=== PATIENT | female | born 1965 | race Caucasian/White ===

== ENCOUNTER 2017-05-07 02:07 | Inpatient (IN) | payer OTHER, MEDICAID ==
[2017-05-07] VITALS (13 sets, daily range): BP systolic 114–141; BP diastolic 66–85; PULSE 98–122; RESP 17–32; O2SAT 92–98
[~2017-05-07] VITALS: Ht 152.4 cm; Wt 72.0 kg
[~2017-05-07 02:07] MED LIST: ALBU2.5V4 IH; ALBU8.5H2 IH; BENZ200C44 PO; CELE200C PO; CEPH-512 PO; ESOM40CA41 PO; FURO-129 PO; IPRA3AMP IH; NAPR500T PO
--- NOTE | 2017-05-07 02:18 | ED.REPORT ---
HPI-General Illness Date of Service May 07, 2017 ED Provider: Dr. Cardona 51 y/o female with a hx of sarcoidosis, asthma and hiatal hernia presents to the ED complaining of cough with white, thick sputum for the last 3 weeks. Associated sx include fever, sore throat, headache, nausea, and mild hemoptysis earlier today. The pt denies vomiting and chest pain. She has not been taking her regular medication as it hurts to swallow. She uses an inhaler at home. Nursing Notes Stated Complaint: COUGH Chief Complaint: Respiratory Distress Nursing Notes Reviewed: Yes Allergies: Coded Allergies: morphine (Verified Allergy, Severe, VOMITTING/ STOMACH BLEEDS, 09/26/16) Hydrolyzed [place] Oil (Verified Allergy, Unknown, UNKNOWN, 09/26/16) Uncoded Allergies: LOCAL ANESTHESIA (Allergy, Unknown, 05/31/15) Scheduled Benzonatate (Benzonatate) 200 Mg Capsule 200 MG PO TID Cephalexin (Keflex) 500 Mg Capsule 500 MG PO QID Furosemide (Lasix) 20 Mg Tablet 20 MG PO DAILY Ipratropium/Albuterol Sulfate (Iprat-Albut 0.5-3(2.5) mg/3 mL Inhalant Soln) 3 Ml Ampul.neb 3 ML IH Q6 Scheduled PRN Albuterol HFA (Proair HFA) 8.5 Gm Hfa.aer.ad 2 PUFFS IH Q4 PRN PRN For Shortness of Breath Albuterol Neb Soln (Albuterol Neb Soln) 2.5 Mg/3 Ml Vial.neb 2.5 MG IH Q4 PRN PRN For Shortness of Breath Celecoxib (Celebrex) 200 Mg Capsule 200 MG PO DAILY PRN PRN For Pain Esomeprazole Magnesium (Nexium) 40 Mg Capsule.dr 40 MG PO DAILY PRN PRN For Dyspepsia or Heartburn Naproxen (Naprosyn) 500 Mg Tablet 500 MG PO BID PRN PRN For Pain General Time Seen by MD: 02:18 Chief Complaint Cough Hx Obtained From: Patient Arrived By: Walk-in Sudden in Onset?: No Onset Occurred: More than a week ago... 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 1. Large hiatal hernia containing stomach and splenic flexure of colon. 2. Right upper lobe pulmonary nodules, mediastinal and retroperitoneal lymphadenopathy, as well as multiple low density splenic lesions. 3. 17 mm diameter splenic artery aneurysm. 4. Multiple small bilateral thyroid nodules. Fibromyalgia Hiatal hernia s/p repair in September 2013 Peptic ulcer disease Asthma HTN CVA Past Surgical History hiatal hernia Smoking History Unknown if Ever Smoker Social History Alcohol Use: Denies alcohol use Drug Use: Denies drug use Other Social History: Good social support, Local resident Occupation lives with boyfriend and her daughter Ambulatory Status Independent Review of Systems Reports: mild hemoptysis Full Review of Systems Constitutional: Reports: Fever Ears / Nose / Throat: Reports: Sore throat Respiratory: Reports: Prod cough, white Cardiovascular: Denies: Chest pain GI: Reports: Nausea, Denies: Vomiting Neurologic: Reports: Headache Complete sys rev & neg: except as marked. Physical Exam Vital Signs Vital Signs Date Time Temp Pulse Resp B/P Pulse Ox O2 Delivery O2 Flow Rate FiO2 05/07/17 04:34 36.7 108 32 134/66 95 Nasal Cannula 2 05/07/17 03:00 110 28 92 Room Air 05/07/17 02:13 37 122 18 141/83 97 Room Air Initial VS: Reviewed Head / Eyes: Atraumatic, Normocephalic Neck: Supple, Non-tender, Full range of motion Abdomen / GI: Soft, Non-tender Extremities: Vascular intact, Neuro intact, No swelling, No tenderness Skin: Warm, Dry, No cyanosis Neurologic: Alert, Oriented, Nonfocal General/Constitutional: Awake, Alert, Cooperative Diaphoretic Chronically ill appearing Respiratory / Chest: Atraumatic, Breath sounds = bilat, No rales Bronchospastic cough Poor breath sounds Cardiovascular: Regular rhythm, Heart sounds NL, No murmurs, No rubs Heart Rate / Rhythm: Positive: Tachycardia Interpretation & Diagnostics Lab Results Interpretation Result Diagram: 05/07/17 0230 05/07/17 0230 Test 05/07/17 02:30 White Blood Count 11.5th/mm3 (3.8-10.1) Red Blood Count 5.07mil/mm3 (3.90-5.20) Hemoglobin 14.2g/dL (12.0-15.6) Hematocrit 43.6% (35.0-46.0) Mean Corpuscular Volume 86.0fL (81-100) Mean Corpuscular Hemoglobin 28.0pg (27.0-35.0) Mean Corpuscular Hemoglobin Concent 32.6% (32.0-37.0) Red Cell Distribution Width 15.8% (12.3-15.4) Platelet Count 306bil/L (150-400) Neutrophils (%) (Auto) 74.9% (40-74) Lymphocytes (%) (Auto) 13.8% (14-46) Monocytes (%) (Auto) 8.4% (4-12) Eosinophils (%) (Auto) 2.3% (0-5) Basophils (%) (Auto) 0.3% (0-3) Prothrombin Time 9.8sec (8.1-12.5) Prothromb Time International Ratio 0.92ratio Activated Partial Thromboplast Time 31.4sec (22.8-33.0) Sodium Level 133mEq/L (134-144) Potassium Level 4.4mEq/L (3.5-5.2) Chloride Level 92mEq/L (97-108) Carbon Dioxide Level 22mmol/L (18-29) Blood Urea Nitrogen 20mg/dL (6-24) Creatinine 1.28mg/dL (0.57-1.00) Estimat Glomerular Filtration Rate 62mL/min (>59) Glucose Level 133mg/dL (60-99) Lactic Acid Level 1.7mmol/L (0.4-2.0) Calcium Level 9.8mg/dL (8.5-10.1) Magnesium Level 2.2mg/dL (1.6-2.6) Total Bilirubin 0.7mg/dL (0.0-1.2) Aspartate Amino Transf (AST/SGOT) 20U/L (0-50) Alanine Aminotransferase (ALT/SGPT) 12U/L (0-32) Alkaline Phosphatase 164U/L (25-150) Troponin T 0.010ug/L (0.0-0.011) Pro-B-Type Natriuretic Peptide 24pg/mL (0-249) Total Protein 10.2g/dL (6.4-8.4) Albumin 4.4g/dL (3.4-5.0) Procalcitonin 0.11ng/mL (0.00-0.08) ECG Interpretation ECG Interpretation: Sinus tachycardia. Rate 116. RBBB. Time: 02:37 Interpreted by: ED physician X-Ray Chest Interpretation Chest Xray Interpretation: Small streak of infiltrates on the left base View: Portable, 1 view Interpretation / Wet Read by: Wet read ED physician Re-Eval/Medical Decision Med Decision/Clinical Course 51-year-old with COPD and sarcoidosis presents with worsening cough and sputum production of the past three weeks. Oxygen saturations remain problematic here, with room air sats six range. Admitted now treatment of acute exacerbation of COPD. There is some faint streaks on the lower left chest that are probably not an overt pneumonitis but he represents some increased markings may represent infection. Rocephin and azithromycin steroids and nebs with improvement. Transported in stable condition. Source of Hx: Old records Time of Eval: 02:50 Re-Evaluation/Progress Note: Rechecked pt. Discussed lab results, imaging results and diagnosis. The pt would like to be admitted. Time of Eval: 03:44 Patient Status: Mild relief Re-Evaluation/Progress Note: Respiratory therapy administered Albuterol and nebulizer. Time of Eval: 04:26 Re-Evaluation/Progress Note: Rechecked pt. Discussed lab results, imaging results,diagnosis and plan to admit. Pt understands and agrees with the plan for admission. All questions addressed. Consultation : Referral / Consult Name: Ezequiel Adler MD Consulted With: Hospitalist Call Returned at: 04:35 Chief Engineer [employer] Recovery: Will see patient, Agrees with eval, Agrees with plan, Accepts admit Counseled Regarding: Diagnosis, Lab results, Need for admission Discharge & Departure Primary Impression: Pneumonia Pneumonia type: due to unspecified organism Laterality: left Lung location : lower lobe of lung Qualified Code: J18.1 - Lobar pneumonia, unspecified organism Additional Impressions: Hypoxia Acute exacerbation of chronic obstructive pulmonary disease (COPD) Sarcoidosis Disposition: ADMITTED TO HOSPITAL Discharge Condition All VS Reviewed: Yes Referrals: Mila Mcconnell (PCP) Scribe Attestation Portions of this note were transcribed by Diana Ortiz. I,, personally performed the history, physical exam and medical decision-making;I reviewed and confirmed the accuracy of the information in the transcribed note. Signed by Danilo Roberts. 05/07/17 copies to: Mila Mcconnell Christopher W MD May 07, 2017 02:18 Diana Ortiz May 07, 2017 02:44
[2017-05-07 02:39] LABS: BASOPHILS % (AUTO) 0.3 % (0-3); EOSINOPHILS % (AUTO) 2.3 % (0-5); MONOCYTES % (AUTO) 8.4 % (4-12); NEUTROPHILS % (AUTO) 74.9 % (40-74); Platelet Count 306 bil/L (150-400)
[2017-05-07] MEDS ORDERED: 0.9% Sodium Chloride 1,000 ML IV ONE (02:47)
[2017-05-07] MEDS ORDERED: Albuterol-Ipratropium 3 mL Inhalation Solution NEB ONE (02:50)
[2017-05-07] MEDS ORDERED: cefTRIAXone Inj 2,000 MG in Dextrose 5% Minibag Plus 50 ML IV ONE (02:50)
[2017-05-07] MEDS ORDERED: Albuterol 2.5 mg/3 mL Inhalation Solution NEB ONE (02:50)
[2017-05-07] MEDS ORDERED: MethylprednisoLONE Sodium Succinate 62.5 mg/mL 2 mL Inj IVPUSH ONE (02:50)
[2017-05-07 03:04] LABS: INR 0.92 ratio
[2017-05-07 03:10] LABS: TROPONIN T 0.01 ug/L (0.0-0.011)
[2017-05-07 03:19] LABS: Magnesium 2.2 mg/dL (1.6-2.6)
[2017-05-07] MEDS ORDERED: Azithromycin Inj 500 MG in Dextrose 5% w/Vial Mate 250 ML IV ONE (04:35)
[2017-05-07] MEDS ORDERED: Ondansetron 2 mg/mL 2 mL Inj IVPUSH PRN (04:40)
[2017-05-07] MEDS ORDERED: Polyethylene Glycol (PEG) 17 Gm Powder PO PRN (04:40)
[2017-05-07] MEDS ORDERED: Alum-Mag Hydrox-Simeth 30 mL Suspension PO PRN (04:40)
--- NOTE | 2017-05-07 05:11 | PCM.HPMED ---
Subjective Date of Service May 07, 2017 Primary Provider: Admitting Physician: Primary Care Physician: Mila Mcconnell Attending Physician: Admit Status: From the Emergency Department, Full Admit Chief Complaint: coughing with increasing dyspnea History of Present Illness: Becky Shafer is a 51 yo female with Extrapulmonary Sarcoidosis, Asthma who presents to [facility] emergency department complaining of cough and increasing dyspnea Patient has been sick for several weeks with increasing dyspnea and associated productive cough of white, thick sputum. She also has subjective fever, sore throat, headache, nausea. She used her inhaler constantly with not significant improvement. Her boyfriend and daughter both had upper respiratory infections last week. She also has second hand smoking exposure. Case discussed with Dr Cardona, mild improvement from neb treatment and steroids and desaturating during road test and will be admitted. Antibiotics also initiated Review of Systems: Pertinent positives as noted in HPI. All other systems were reviewed and are negative Allergies Coded Allergies: morphine (Verified Allergy, Severe, VOMITTING/ STOMACH BLEEDS, 09/26/16) Hydrolyzed [place] Oil (Verified Allergy, Unknown, UNKNOWN, 09/26/16) Uncoded Allergies: LOCAL ANESTHESIA (Allergy, Unknown, 05/31/15) Home Medications From [facility], not yet confirmed Becky Shafer : 1965 Page: 10/08 ASPIRIN 325 mg take 1 tablet by oral route every day NEXIUM 40 mg take 1 capsule (40MG) by oral route every day Durable Medical Equipment utilize 4 wheel walker with hand breaks while ambulating KETOCONAZOLE 2 % apply by topical route every day to the affected area(s) ALBUTEROL SULFATE 2.5 mg/3 mL (0.083 %) inhale 3 milliliter by nebulization route 3 times every day for breathing. PROAIR HFA 90 mcg inhale 2 puff by inhalation route every 4 - 6 hours as needed for breathing. 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 Fibromyalgia Asthma Stroke October 2014 PTSD/Anxiety and Depression Chronic pain syndrome. Follows up at the [facility] . Surgical History Hiatal hernia s/p repair in September 2013 Hiatal herniorrhaphy Family History Father with rheumatoid arthritis Mother with DM2 and pancreatic cancer Grandmother with CVA Social History Hx Alcohol Use: No Hx Substance Use: No Hx Tobacco Use: No Smoking Status: Never Smoker Living Arrangement: with Family (takes care of a disabled daughter) Exam Vital Signs Vital Sign - Last Date Time Temp Pulse Resp B/P Pulse Ox O2 Delivery O2 Flow Rate FiO2 05/07/17 04:34 36.7 108 32 134/66 95 Nasal Cannula 2 Intake and Output 05/06/17 05/06/17 05/07/17 Cumulative From/Thru 15:00 23:00 07:00 05/07/17 02:13 - 05/07/17 03:40 Intake Total 1000 ml 1000 ml Balance 1000 ml 1000 ml Intake IV Total 1000 ml 1000 ml Exam General: Alert, Oriented X3, Cooperative, No acute Distress. Talking in full sentences Eyes: PERRLA, Scleral Anicteric Mouth: Mouth Normal, Mucous Membranes Moist/[place] Neck: Supple, no Thyromegaly, trachea central. Chest & Lungs: expiratory wheezing with prolonged expiratory phase Cardiovascular: Normal S1, Normal S2, No Murmurs/Rubs/Gallops, sinus tachycardia (No JVD, no peripheral edema) Pulses: Radial (present and equal), Dorsalis Pedi (present and equal) Abdomen: Soft, Non-tender, Non-distended, Normoactive bowel tones. Musculoskeletal: Unremarkable. Normal range of motion, no swollen or erythematous joints Extremities: No edema, no cyanosis, no clubbing. Skin: No rashes. Warm and dry, no erythematous areas Neurological: Grossly neurologically intact, Normal Speech, Sensation Intact Lymphatic: Lymph nodes Cervical and Axillary not palpable. Lab and Diagnostics Labs Laboratory Tests Test 05/07/17 02:30 White Blood Count 11.5th/mm3 (3.8-10.1) Red Blood Count 5.07mil/mm3 (3.90-5.20) Hemoglobin 14.2g/dL (12.0-15.6) Hematocrit 43.6% (35.0-46.0) Mean Corpuscular Volume 86.0fL (81-100) Mean Corpuscular Hemoglobin 28.0pg (27.0-35.0) Mean Corpuscular Hemoglobin Concent 32.6% (32.0-37.0) Red Cell Distribution Width 15.8% (12.3-15.4) Platelet Count 306bil/L (150-400) Neutrophils (%) (Auto) 74.9% (40-74) Lymphocytes (%) (Auto) 13.8% (14-46) Monocytes (%) (Auto) 8.4% (4-12) Eosinophils (%) (Auto) 2.3% (0-5) Basophils (%) (Auto) 0.3% (0-3) Prothrombin Time 9.8sec (8.1-12.5) Prothromb Time International Ratio 0.92ratio Activated Partial Thromboplast Time 31.4sec (22.8-33.0) Sodium Level 133mEq/L (134-144) Potassium Level 4.4mEq/L (3.5-5.2) Chloride Level 92mEq/L (97-108) Carbon Dioxide Level 22mmol/L (18-29) Blood Urea Nitrogen 20mg/dL (6-24) Creatinine 1.28mg/dL (0.57-1.00) Estimat Glomerular Filtration Rate 62mL/min (>59) Glucose Level 133mg/dL (60-99) Lactic Acid Level 1.7mmol/L (0.4-2.0) Calcium Level 9.8mg/dL (8.5-10.1) Magnesium Level 2.2mg/dL (1.6-2.6) Total Bilirubin 0.7mg/dL (0.0-1.2) Aspartate Amino Transf (AST/SGOT) 20U/L (0-50) Alanine Aminotransferase (ALT/SGPT) 12U/L (0-32) Alkaline Phosphatase 164U/L (25-150) Troponin T 0.010ug/L (0.0-0.011) Pro-B-Type Natriuretic Peptide 24pg/mL (0-249) Total Protein 10.2g/dL (6.4-8.4) Albumin 4.4g/dL (3.4-5.0) Procalcitonin 0.11ng/mL (0.00-0.08) Microbiology 05/07/17 Blood Culture, Received Pending Result Diagram: 05/07/17 0230 05/07/17 0230 Assessment & Plan Becky Shafer is a 51 yo female with Extrapulmonary Sarcoidosis, Asthma who presents to [facility] emergency department complaining of cough and increasing dyspnea 1 Acute COPD exacerbation with possible pneumonia. Present on admission Likely triggered by viral/bacterial respiratory infection with family sick contact. Also is a secondary hand cigarette exposure - continue oxygen supplementation - steroids continued with Prednisone 40 mg daily - DuoNeb scheduled treatment - empiric antibiotics with Doxycycline 100 mg bid, procalcitonin elevated 2 Acute Kidney injury. 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 Diagnosed with liver biopsy in 2012. Also found to have multiple hypodense splenic lesions - Not currently on any steroids and no current indication for steroid use for Sarcoidosis specifically - follow up with Rheumatology clinic 4 Hypertension, Chronic Presumed stable - continue Amlodipine 5 mg daily 5 Fibromyalgia with Chronic pain syndrome - continue Celebrex 200mg by mouth daily as needed for pain 6 Hyperlipidemia,Chronic Presumed stable - continue Lovastatin 10 mg daily - Acetaminophen as needed for mild pain/fever/headache - Bowel regimen as needed - Antiemetic as needed Patient admitted under inpatient status with expected length of stay > 2 midnights for severity of present symptoms, complexities of treatment plan and risk for adverse event . VTE Prophylaxis: Sub-Q Heparin (Unfractionated) Resuscitation Status: CPR: Attempt Resuscitation Ezequiel Adler MD May 07, 2017 04:49 Resuscitation Status: CPR: Attempt Resuscitation Ezequiel Adler MD May 07, 2017 04:49
[2017-05-07] MEDS: 0.9% Sodium Chloride 1,000 ML IV SCH ×2 (05:44→20:10)
--- NOTE | 2017-05-07 05:50 | NUR ---
admit note: difficult to obtain history for admit from patient and caregiver/sig other. Pt. is being nonverbal, occasional broncho-spastic cough, upper expiratory wheezes on 2L o2 sats 93%. caregiver does not know history of patient and does not know patients meds. Per caregiver pt. has had previous stroke, has difficulty swallowing, especially pills, she has been sick for 3 weeks with cough.
[2017-05-07] MEDS: Albuterol-Ipratropium 3 mL Inhalation Solution NEB SCH ×5 (07:52→23:45)
[2017-05-07] MEDS: Heparin 5,000 Unit/mL Inj SUBQ SCH ×2 (08:30→18:25)
[2017-05-07] MEDS ORDERED: predniSONE 20 mg Tablet PO SCH (08:30)
--- NOTE | 2017-05-07 10:54 | DRSVH ---
PROCEDURE: X-RAY CHEST ONE VIEW, PORTABLE ([id number]) INDICATIONS: SHORT OF BREATH, COUGH TECHNIQUE: One view of the chest was acquired. COMPARISON: [facility], CR, XR CHEST 2VW, 09/26/2016, 0:50. [facility], CR, XR CHEST 1VW (PORTABLE), 09/22/2015, 23:10. FINDINGS: Surgical changes and devices: None. Lungs and pleura: No pleural effusions or pneumothorax. Lung volumes are low and probable bibasilar atelectasis is present. Mediastinum: Mediastinal contours appear normal. Heart size is normal. Bones and chest wall: No suspicious bony lesions. Overlying soft tissues appear unremarkable. IMPRESSION: Lung volumes are low and there is bibasilar airspace opacities which may be related to at electasis but developing pneumonia cannot entirely be excluded. Dictated by: Matthew Frankel [facility] Interpreted: Thai Barnett MD on 05/07/2017 at 9:03 Approved by: Thai Barnett M.D. on 05/07/2017 at 10:52
[2017-05-07] MEDS: Doxycycline 100 mg/100 mL D5W IV SCH ×2 (13:17)
--- NOTE | 2017-05-07 15:26 | NUR ---
admit assessment Pt sleeping this AM. When went into room to do her admission, she arroused easily. Able to speak and answer questions re-admission. She became frustrated when asking admission questions stating "they asked me the same things already." Explained to pt that questions in ED are the same but we have to ask them again for admission. Unable to do med rec, pt only knows meds by the first letter, she does not know doses and unsure on the last time she took medications. Pt also states she has trouble swallowing pills, however she is on a general diet and ate all of her breakfast and 2 trays of lunch without issue. When provided her prednisone, she states she will vomit if she takes pills. When asked if she can swallow food, she states that is not an issue. offered pt applesauce which she declined but accpeted chocolate pudding to take her pills with. she swallowed pills and ate entire container of pudding. Called into room 5 min later where pt is holding a cloth stating she refuses to take additional pills because they make her vomit. Cloth checked and no emesis, scant phlegm seen on cloth. When asked pt what she threw up, states it was just white phelgm but she wont' take pills anymore. notified.
[2017-05-07] MEDS ORDERED: MethylprednisoLONE Sodium Succinate 40 mg/mL Inj IVPUSH SCH (16:30)
--- NOTE | 2017-05-07 16:30 | NUR ---
BICYCLE MECHANIC consult received. Pt declined evaluation and stated that she was eating without difficulty but couldn't swallow pills. Pt agreed to crushed meds as a trial until BICYCLE MECHANIC eval on 05/08. Discussed with RN. BICYCLE MECHANIC will eval tomorrow.
--- NOTE | 2017-05-07 21:14 | NUR ---
IV access Held 1630 Solu-medrol due to no IV access. New IV access complete at 1999 by ED RN. Pharmacy called and they re-timed Solu-medrol doses.
[2017-05-07] MEDS: MethylprednisoLONE Sodium Succinate 40 mg/mL Inj IVPUSH SCH (21:31)
[2017-05-08] VITALS (10 sets, daily range): BP systolic 110–130; BP diastolic 69–76; PULSE 72–99; RESP 16–20; O2SAT 94–99
[2017-05-08] MEDS: Doxycycline 100 mg/100 mL D5W IV SCH ×4 (01:18→12:44)
[2017-05-08] MEDS: Heparin 5,000 Unit/mL Inj SUBQ SCH ×3 (01:19→17:06)
[2017-05-08] MEDS: Albuterol-Ipratropium 3 mL Inhalation Solution NEB SCH ×2 (03:47→07:56)
[2017-05-08 04:52] LABS: APPEARANCE,URINE HAZY (CLEAR,HAZY); COLOR,URINE YELLOW (YELLOW); OCCULT BLOOD,URINE NEGATIVE (NEGATIVE); PH,URINE 5.5 (5.0-8.0); UROBILINOGEN,URINE NORMAL (NORMAL)
[2017-05-08] MEDS: MethylprednisoLONE Sodium Succinate 40 mg/mL Inj IVPUSH SCH ×2 (06:24→21:39)
[2017-05-08] MEDS: 0.9% Sodium Chloride 1,000 ML IV SCH (06:28)
[2017-05-08] MEDS ORDERED: Pantoprazole 40 mg ER24 Tablet PO PRN (08:30)
--- NOTE | 2017-05-08 08:30 | NUR ---
0800-Entered pt. room for breathing tx. Pt. using restroom. Med miguel set up and explained to pt. would return when she was ready, and to have the nurse call me. pt. did not call. returned to room at 830 to start tx. Nurse said pt. did not want to take the tx from this therapist. Nsg started. tx. told nurse would give tx if she called Addendum: 05/08/17 at 0843 by [facility] Was unaware pt. using restroom at the time. Pt. did not indicate her preferences for tx. until after I had set up the treatment and left the room.
--- NOTE | 2017-05-08 09:48 | NUR ---
Respiratory 2L NC sats low 90's; denies sob at rest; intermittent coughing, pt. states she feels like her throat is swelled up the size of a softball; refused scheduled shon stallworth this am. Refused Neb tx; notified; nebs changed to PRN. Denies pain at this time.
--- NOTE | 2017-05-08 12:08 | NUR ---
Evaluation completed. Please go to "Notes" then click on "Assessments and Notes" (bottom left corner of screen). Then select appropriate discipline tab on top of screen.
[2017-05-08 12:26] LABS: BASOPHILS % (AUTO) 0 % (0-3); EOSINOPHILS % (AUTO) 0.5 % (0-5); MONOCYTES % (AUTO) 4.3 % (4-12); Mean Corpuscular Hemoglobin 27.9 pg (27.0-35.0); Mean Corpuscular Volume 85.3 fL (81-100); NEUTROPHILS % (AUTO) 89.4 % (40-74); Platelet Count 263 bil/L (150-400)
[2017-05-08 12:49] LABS: Magnesium 1.9 mg/dL (1.6-2.6); Phosphorus 3.2 mg/dL (2.5-4.9)
--- NOTE | 2017-05-08 13:53 | PCM.PNMED ---
Subjective Date of Service May 08, 2017 Subjective Breathing much improved per patient. Worsening leukocytosis with steroid noted. Discontinued antibiotics Exam Vital Signs Vital Sign - Last Date Time Temp Pulse Resp B/P Pulse Ox O2 Delivery O2 Flow Rate FiO2 05/08/17 13:17 36.3 99 18 110/73 97 Nasal Cannula 2.00 Intake and Output 05/07/17 05/07/17 05/08/17 Cumulative From/Thru 15:00 23:00 07:00 05/07/17 02:13 - 05/08/17 06:30 Intake Total 1607 ml 1939 ml 4546 ml Output Total 900 ml 850 ml 1750 ml Balance 707 ml 1089 ml 2796 ml Intake Oral 233 ml 920 ml 1153 ml IV Total 1374 ml 1019 ml 3393 ml Output Urine Total 200 ml 850 ml 1050 ml Urine/Stool Mix 700 ml 700 ml # Bowel Movements 1 1 2 Exam General: Alert, Oriented X3, Cooperative, No acute Distress. Talking in full sentences Eyes: PERRLA, Scleral Anicteric Mouth: Mouth Normal, Mucous Membranes Moist/[place] Neck: Supple, no Thyromegaly, trachea central. Chest & Lungs: expiratory wheezing with prolonged expiratory phase, but improved Cardiovascular: Normal S1, Normal S2, No Murmurs/Rubs/Gallops, sinus tachycardia (No JVD, no peripheral edema) Pulses: Radial (present and equal), Dorsalis Pedi (present and equal) Abdomen: Soft, Non-tender, Non-distended, Normoactive bowel tones. Musculoskeletal: Unremarkable. Normal range of motion, no swollen or erythematous joints Extremities: No edema, no cyanosis, no clubbing. Skin: No rashes. Warm and dry, no erythematous areas Neurological: Grossly neurologically intact, Normal Speech, Sensation Intact Lymphatic: Lymph nodes Cervical and Axillary not palpable. IVs and Medications Medications Reviewed: Medications were reviewed in detail Lab and Diagnostics Result Diagram: 05/08/17 1200 05/08/17 1200 X-Rays, CTs and MRIs PROCEDURE: X-RAY CHEST ONE VIEW, PORTABLE ([id number]) INDICATIONS: SHORT OF BREATH, COUGH IMPRESSION: Lung volumes are low and there is bibasilar airspace opacities which may be related to atelectasis but developing pneumonia cannot entirely be excluded. Dictated by: Matthew Frankel [facility] Interpreted: Thai Barnett MD on 05/07/2017 at 9:03 Assessment & Plan Becky Shafer is a 51 yo female with Extrapulmonary Sarcoidosis, Asthma who presents to [facility] emergency department complaining of cough and increasing dyspnea # Acute COPD exacerbation . Present on admission Likely triggered by viral respiratory infection with family sick contact. Also is a secondary hand cigarette exposure - continue oxygen supplementation - steroids Solu-Medrol 40 mg twice a day. Patient is reluctant to take prednisone by mouth - DuoNeb scheduled treatment - Initially empiric antibiotics with Doxycycline 100 mg bid started, procalcitonin low. Discontinue antibiotics today 05/08 #Leukocytosis, -worsened due to steroid -Percocet 20 low. Discontinued antibiotics. #Acute Kidney injury. 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 Diagnosed with liver biopsy in 2012. Also found to have multiple hypodense splenic lesions - Not currently on any steroids and no current indication for steroid use for Sarcoidosis specifically - follow up with Rheumatology clinic #Hypertension, Chronic Presumed stable - continue Amlodipine 5 mg daily #Fibromyalgia with Chronic pain syndrome - continue Celebrex 200mg by mouth daily as needed for pain #Hyperlipidemia,Chronic Presumed stable - continue Lovastatin 10 mg daily - Acetaminophen as needed for mild pain/fever/headache - Bowel regimen as needed - Antiemetic as needed Patient admitted under inpatient status with expected length of stay > 2 midnights for severity of present symptoms, complexities of treatment plan and risk for adverse event Discharge in 2-3 days . VTE Prophylaxis: Sub-Q Heparin (Unfractionated) VTE Mechanical Devices: Intermittant Pneumatic CD Resuscitation Status: CPR: Attempt Resuscitation Landon Goodwin MD May 08, 2017 13:53
--- NOTE | 2017-05-08 16:22 | NUR ---
"Social Work- Initial Assessment/Readiness for D/C/ Multidisciplinary Rounds Data: See Initial Assessment and Advance Directive Intervention for additional information. Pt discussed in rounds. Pt is not medically ready for d/c at this time. RN to mobilize pt today. No SW needs identified in rounds. Pt is a 51 year old admitted 05/07/17 for pneumonitis/COPD per H&P. Pt's insurance is [place] [employer] and [facility] Medicaid Supp. Pt's PCP is GIRISH Davies. Pt's readmit risk score is 3. SW met with pt at bedside regarding discharge plan, SW role explained. Pt alert and oriented x3. Pt's capacity for self-care assessed. Pt's identified support person is Jhonatan Harper, caregiver, . Pt resides in [place] in an apt with her caregiver Jhonatan and her 26 y/o disabled daughter. Pt is not independent with ADLs and self-care. Jhonatan assists pt with grocery shopping, transportation, caring for pt's daughter. Jhonatan is pt's [facility] caregiver. Pt has 50 hours/month through [employer]. Pt's CM is Fidel Harrington. [employer] requested to fax clinicals. Pt uses a walker at baseline. Pt does not drive. Pt has history with [facility] services, pt reports that she declined [facility] services. Pt has no history with SNF services. Pt has no DPOA on file and SW provided paperwork at bedside. Pt's housing does not currently have air conditioning and pt is very concerned that her landlord will not place A/C in her home. Pt reports that she will d/c with home O2 and that it is too hot in her home to have an O2 tank. SW encouraged pt to speak to MD regarding this and SW notified MD as well. T/C to Respiratory Therapist regarding home O2, Respiratory Therapy has no knowledge of pt discharging with home O2 at this time. SW discussed with pt housing resources, pt provided with housing in [facility] list as well as information related to [facility]. SW provided Discharge planning Checklist and requested that pt contact DAIRY MANAGEMENT SPECIALIST if needs identified. SW provided phone number and plan on whiteboard. Pt agreeable. Pt requested DAIRY MANAGEMENT SPECIALIST call [employer] tomorrow for transportation home at d/c. SW will continue to follow. Assessment: Pt who has [facility] caregiving at home. Plan: Housing resources provided to pt at bedside. Pt requested DAIRY MANAGEMENT SPECIALIST call [employer] tomorrow for transportation home at d/c. Pt to discharge home with her [facility] caregiver. JADE will continue to follow. NILSON Garza Addendum: 05/08/17 at 1624 by JONATHON LYONS Amended: Links added."
--- NOTE | 2017-05-08 18:36 | NUR ---
02 needs Pt on cont. pulse ox w/3L NC and adequate sats. I decreased her O2 to 2L and pt continued to have adequate sats. Brought 02 down to 1L NC at sats 93%. Will continue to monitor and per M.D. she needs O2 test with ambulation to see if she required it when she goes home.
[2017-05-09] VITALS (12 sets, daily range): BP systolic 119–139; BP diastolic 73–82; PULSE 80–103; RESP 18–22; O2SAT 89–97
[2017-05-09] MEDS: Heparin 5,000 Unit/mL Inj SUBQ SCH ×3 (00:58→16:29)
[2017-05-09] MEDS: Albuterol-Ipratropium 3 mL Inhalation Solution NEB PRN ×4 (01:01→19:40)
--- NOTE | 2017-05-09 06:33 | NUR ---
NOC PT on 2l NC over noc. Pt refusing to wear TYPEWRITER [employer]CHAN[employer] but sats were in high 90's over night. PT continues to have expiratory wheezes noted, mostly in the bases. Requested one neb treatment. PT is up to BSC independently. Denies any pain. Concerned about getting out of the hospital today for a scheduled appt her disabled daughter has. This info will be passed on to day RN for f/u.
[2017-05-09] MEDS: MethylprednisoLONE Sodium Succinate 40 mg/mL Inj IVPUSH SCH ×2 (07:52→20:48)
[2017-05-09 08:30] LABS: BASOPHILS % (AUTO) 0.1 % (0-3); EOSINOPHILS % (AUTO) 0 % (0-5); MONOCYTES % (AUTO) 1.8 % (4-12); Mean Corpuscular Hemoglobin 28.1 pg (27.0-35.0); Mean Corpuscular Volume 87.1 fL (81-100); NEUTROPHILS % (AUTO) 90.5 % (40-74); Platelet Count 311 bil/L (150-400)
--- NOTE | 2017-05-09 11:36 | DRSVH ---
PROCEDURE: X-RAY CHEST ONE VIEW, PORTABLE ([id number]) INDICATIONS: COPD exacerbation TECHNIQUE: One view of the chest was acquired. COMPARISON: [facility], CR, XR CHEST 1VW (PORTABLE), 05/07/2017, 2:21. FINDINGS: Surgical changes and devices: None. Lungs and pleura: No pleural effusions or pneumothorax. Possible minimal early infiltrate right midl marnie field.. Lung volumes are low. Mediastinum: Mediastinal contours appear normal. Heart size is normal. Bones and chest wall: No suspicious bony lesions. Overlying soft tissues appear unremarkable. IMPRESSION: Poor depth of inspiration. Minimal patchy density over the infiltrate cannot be excluded in the right midlung field. Dictated by: Matthew Frankel RR Interpreted: Thai Barnett MD on 05/09/2017 at 11:09 Approved by: Thai Barnett M.D. on 05/09/2017 at 11:33
--- NOTE | 2017-05-09 12:34 | PCM.PNMED ---
Subjective Date of Service May 09, 2017 Subjective continues to have dyspnea ,afebrile Exam Vital Signs Vital Sign - Last Date Time Temp Pulse Resp B/P Pulse Ox O2 Delivery O2 Flow Rate FiO2 05/09/17 09:32 Nasal Cannula 2.00 05/09/17 07:59 36.7 97 18 129/80 97 Intake and Output 05/08/17 05/08/17 05/09/17 Cumulative From/Thru 15:00 23:00 07:00 05/07/17 02:13 - 05/09/17 05:12 Intake Total 1033 ml 1274 ml 6853 ml Output Total 1750 ml 1050 ml 4550 ml Balance -717 ml 224 ml 2303 ml Intake Oral 355 ml 1274 ml 2782 ml IV Total 678 ml 4071 ml Output Urine Total 1750 ml 1050 ml 3850 ml Urine/Stool Mix 700 ml # Bowel Movements 1 1 4 Exam General: Alert, Oriented X3, Cooperative, moderate respiratory Distress. Eyes: PERRLA, Scleral Anicteric Mouth: Mouth Normal, Mucous Membranes Moist/[place] Neck: Supple, no Thyromegaly, trachea central. Chest & Lungs: expiratory wheezing with prolonged expiratory phase, but improved Cardiovascular: Normal S1, Normal S2, No Murmurs/Rubs/Gallops, sinus tachycardia (No JVD, no peripheral edema) Pulses: Radial (present and equal), Dorsalis Pedi (present and equal) Abdomen: Soft, Non-tender, Non-distended, Normoactive bowel tones. Musculoskeletal: Unremarkable. Normal range of motion, no swollen or erythematous joints Extremities: No edema, no cyanosis, no clubbing. Skin: No rashes. Warm and dry, no erythematous areas Neurological: Grossly neurologically intact, Normal Speech, Sensation Intact Lymphatic: Lymph nodes Cervical and Axillary not palpable. IVs and Medications Medications Reviewed: Medications were reviewed in detail Lab and Diagnostics Result Diagram: 05/09/17 0810 05/09/17 0810 X-Rays, CTs and MRIs PROCEDURE: X-RAY CHEST ONE VIEW, PORTABLE ([id number]) INDICATIONS: SHORT OF BREATH, COUGH IMPRESSION: Lung volumes are low and there is bibasilar airspace opacities which may be related to atelectasis but developing pneumonia cannot entirely be excluded. 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 Present on admission Likely triggered by viral respiratory infection with family sick contact. Also is a secondary hand cigarette exposure - continue oxygen supplementation - steroids Solu-Medrol 40 mg twice a day. Patient is reluctant to take prednisone by mouth - DuoNeb scheduled treatment - Initially empiric antibiotics with Doxycycline 100 mg bid started, procalcitonin low. Discontinue antibiotics 05/08 -blood cx negative x2 #Leukocytosis, -due to steroid -Procal low. Discontinued antibiotics. #Acute Kidney injury. 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 Diagnosed with liver biopsy in 2012. Also found to have multiple hypodense splenic lesions - Not currently on any steroids and no current indication for steroid use for Sarcoidosis specifically - follow up with Rheumatology clinic #Hypertension, Chronic Presumed stable - continue Amlodipine 5 mg daily #Fibromyalgia with Chronic pain syndrome - continue Celebrex 200mg by mouth daily as needed for pain #Hyperlipidemia,Chronic Presumed stable - continue Lovastatin 10 mg daily - Acetaminophen as needed for mild pain/fever/headache - Bowel regimen as needed - Antiemetic as needed Patient admitted under inpatient status with expected length of stay > 2 midnights for severity of present symptoms, complexities of treatment plan and risk for adverse event Discharge tomorrow VTE Prophylaxis: Sub-Q Heparin (Unfractionated) VTE Mechanical Devices: Intermittant Pneumatic CD Resuscitation Status: CPR: Attempt Resuscitation Landon Goodwin MD May 09, 2017 12:34
[2017-05-09] MEDS ORDERED: Furosemide 10 mg/mL 2 mL Inj IVPUSH ONE (13:25)
[2017-05-10] VITALS (10 sets, daily range): BP systolic 131–139; BP diastolic 72–89; PULSE 75–99; RESP 18–26; O2SAT 91–97
[2017-05-10] MEDS: Albuterol-Ipratropium 3 mL Inhalation Solution NEB PRN ×5 (00:09→14:47)
[2017-05-10] MEDS: Heparin 5,000 Unit/mL Inj SUBQ SCH ×2 (01:36→09:20)
--- NOTE | 2017-05-10 06:38 | NUR ---
Activity Pt rec'd PRN neb treatments over noc. Pt states "they help a lot". Pt concerned with where to acquire oxygen to use when she goes home. Pt saline locked, receiving IV Solu-medrol -pt likes heat pack for IV site with IV meds. Cough present, but more intermittent than previous day. Pt would like to go home today if possible.
[2017-05-10 08:05] LABS: BASOPHILS % (AUTO) 0.2 % (0-3); EOSINOPHILS % (AUTO) 0 % (0-5); MONOCYTES % (AUTO) 3.9 % (4-12); Mean Corpuscular Hemoglobin 28.5 pg (27.0-35.0); Mean Corpuscular Volume 86.3 fL (81-100); NEUTROPHILS % (AUTO) 87.6 % (40-74); Platelet Count 276 bil/L (150-400)
[2017-05-10] MEDS: MethylprednisoLONE Sodium Succinate 40 mg/mL Inj IVPUSH SCH (09:20)
--- NOTE | 2017-05-10 12:05 | PCM.DIMED ---
Discharge Instructions Date of Service May 10, 2017 Dates of Hospitalization May 07, 2017 at 05:01 Discharge Diagnosis Discharge Diagnosis # Acute asthma/COPD exacerbation . Present on admission,improving Likely triggered by viral respiratory infection #Leukocytosis, -due to steroid #Acute Kidney injury. 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 #Hypertension, Chronic #Fibromyalgia with Chronic pain syndrome #Hyperlipidemia,Chronic Diet Discharge Diet: Low fat, Low Sodium Activity Discharge Activity: Limited until seen by PCP Call your provider Call your provider for: Fever or Chills, Shortness of breath, Bleeding, Chest pain, Vomitting, Excessive diarrhea, Weakness (unilateral) Patient Instructions Patient Instructions You were hospitalized due to asthma/COPD exacerbation. You have been treated with IV steroids. Please continue prednisone 40 mg po daily for 3 more days. We have arranged home oxygen. Please follow-up with PCP for possible repeat pulmonary function test and optimization of COPD/asthma medication regimen. Follow-up Provider: Mila Mcconnell Follow-up with PCP in: 1 week Landon Goodwin MD May 10, 2017 12:05
[2017-05-10] MEDS ORDERED: PRE20 PO (12:12)
--- NOTE | 2017-05-10 13:10 | NUR ---
Discharge All discharge teaching and instructions done with pt at bedside. Medication teaching and infection prevention teaching done with pt. IV d/c'd intact. RT set up O2 for transport. Home O2 to be set up per RT. Hard copy of RX with pt. No items in the safe or pharmacy. Waiting on transport for pt. Addendum: 05/10/17 at 1553 by DORIS DIAZ RN Home O2 set up and O2 for oxygen set up. Pt d/c'd with caregiver via [employer]. All O2 instructions and teaching done with RT and reinforced by NAVIN.
--- NOTE | 2017-05-10 15:44 | NUR ---
Social Work: Discharge/Multidisciplinary Rounds D: EMR reviewed. Pt is on day 3 of hospitalization. Pt discussed in multidisciplinary rounds. Per multidisciplinary rounds, pt is medically stable for discharge home today. Pt has been seen by RT for home O2. RN reports that pt states she is ready to go home and is set up with home O2. Pt requested [facility] transport. SW confirmed pt did not arrive to hospital via EMS and pt does not qualify for [facility] transport. SW called [employer] to confirm cost of transport to pt's address - $7. SW updated RN. RN stated that pt's caregiver will provide transport home today and pt is feeling much better about going home with new home O2. SW confirmed pt has nebulizer at home. No MD orders received. No SW needs identified. A: Pt who has a caregiver at baseline. P: Pt discharged home with caregiver via POV. RT confirmed home O2 set-up. Pt agreeable to discharge plan. No MD orders received. No SW needs identified. NILSON Ceron
--- NOTE | 2017-05-10 17:51 | PCM.DC.MED ---
Discharge Summary Date of Service May 10, 2017 Dates of Hospitalization Date of Hospital Admission May 07, 2017 at 05:01 Date of Discharge: May 10, 2017 Providers: Admitting Physician: Ezequiel Adler MD Primary Care Physician: Mila Mcconnell Attending Physician: Landon Diego MD Diagnosis at Time of Discharge Diagnosis at Time of Discharge # Acute asthma/COPD exacerbation . Present on admission,improving Likely triggered by viral respiratory infection #Leukocytosis, -due to steroid #Acute Kidney injury. 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 #Hypertension, Chronic #Fibromyalgia with Chronic pain syndrome #Hyperlipidemia,Chronic Procedures XRay, CTs & MRIs PROCEDURE: X-RAY CHEST ONE VIEW, PORTABLE ([id number]) INDICATIONS: SHORT OF BREATH, COUGH IMPRESSION: Lung volumes are low and there is bibasilar airspace opacities which may be related to atelectasis but developing pneumonia cannot entirely be excluded. 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 She also has subjective fever, sore throat, headache, nausea. She used her inhaler constantly with not significant improvement. Her boyfriend and daughter both had upper respiratory infections last week. She also has second hand smoking exposure. Case discussed with Dr Cardona, mild improvement from neb treatment and steroids and desaturating during road test and will be admitted. 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 Present on admission Likely triggered by viral upper respiratory infection with family sick contact. -Patient states she has history of asthma since childhood, but few years ago she was told she has COPD. She has no history of smoking but has significant secondhand exposure from her dad and ex- -arranged home oxygen -Treated with Solu-Medrol 40 mg twice a day. Discharge on prednisone 40 mg daily for 3 more days - Patient has nebulizers at home and uses DuoNeb. Recommend repeat PFT and optimization of her COPD regimen. may need Spiriva - Initially empiric antibiotics with Doxycycline 100 mg bid started, procalcitonin low. Discontinue antibiotics 05/08 -blood cx negative x2 #Leukocytosis, -due to steroid -Procal low. Discontinued antibiotics. #Acute Kidney injury. 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 Diagnosed with liver biopsy in 2012. Also found to have multiple hypodense splenic lesions - Not currently on any steroids and no current indication for steroid use for Sarcoidosis specifically - follow up with Rheumatology clinic #Hypertension, Chronic Presumed stable - continue Amlodipine 5 mg daily #Fibromyalgia with Chronic pain syndrome - continue Celebrex 200mg by mouth daily as needed for pain #Hyperlipidemia,Chronic Presumed stable - continue Lovastatin 10 mg daily -Discharged home Condition on discharge stable Exam Vital Signs (Last) Date Time Temp Pulse Resp B/P Pulse Ox O2 Delivery O2 Flow Rate FiO2 05/10/17 14:47 93 20 95 Nasal Cannula 2.00 05/10/17 14:44 36.3 135/89 Exam General: Alert, Oriented X3, Cooperative, moderate respiratory Distress. Eyes: PERRLA, Scleral Anicteric Mouth: Mouth Normal, Mucous Membranes Moist/[place] Neck: Supple, no Thyromegaly, trachea central. Chest & Lungs: expiratory wheezing with prolonged expiratory phase, but improved Cardiovascular: Normal S1, Normal S2, No Murmurs/Rubs/Gallops, sinus tachycardia (No JVD, no peripheral edema) Pulses: Radial (present and equal), Dorsalis Pedi (present and equal) Abdomen: Soft, Non-tender, Non-distended, Normoactive bowel tones. Musculoskeletal: Unremarkable. Normal range of motion, no swollen or erythematous joints Extremities: No edema, no cyanosis, no clubbing. Skin: No rashes. Warm and dry, no erythematous areas Neurological: Grossly neurologically intact, Normal Speech, Sensation Intact Lymphatic: Lymph nodes Cervical and Axillary not palpable. Test 05/07/17 02:30 05/08/17 02:45 05/08/17 12:00 05/09/17 08:10 Prothrombin Time 9.8sec (8.1-12.5) Prothromb Time International Ratio 0.92ratio Activated Partial Thromboplast Time 31.4sec (22.8-33.0) Lactic Acid Level 1.7mmol/L (0.4-2.0) Troponin T 0.010ug/L (0.0-0.011) Pro-B-Type Natriuretic Peptide 24pg/mL (0-249) Urine Color Yellow (YELLOW) Urine Appearance Hazy (CLEAR,HAZY) Urine pH 5.5 (5.0-8.0) Urine Specific [place] 1.023 (1.003-1.035) Urine Protein Negativemg/dL (NEG,TRACE) Urine Glucose (UA) Negativemg/dL (NEGATIVE) Urine Ketones Tracemg/dL (NEGATIVE) Urine Occult Blood Negative (NEGATIVE) Urine Nitrite Negative (NEGATIVE) Urine Bilirubin Negative (NEGATIVE) Urine Urobilinogen Normalmg/dL (NORMAL) Urine Leukocyte Esterase Negative (NEGATIVE) Urine RBC 0-2/hpf (0-2) Urine WBC 0-5/hpf (0-5) Urine Epithelial Cells Moderate/hpf (NONE-MOD) Urine Crystals None seen (NONE SEEN) Urine Bacteria Moderate/hpf (NONE-FEW) Urine Hyaline Casts None/lpf (NONE) Urine Granular Casts None seen (NONE SEEN) Urine Waxy Casts None seen (NONE SEEN) Urine Red Blood Cell Casts None seen (NONE SEEN) Urine White Blood Cell Casts None seen (NONE SEEN) Urine Mucus None seen (None Seen) Urine Trichomonas None seen (NONE SEEN) Urine Yeast None (NONE SEEN) Urinalysis Comment Transitional epi Urine Culture Reflexed Indicated Phosphorus Level 3.2mg/dL (2.5-4.9) Magnesium Level 1.9mg/dL (1.6-2.6) Procalcitonin 0.05ng/mL (0.00-0.08) Test 05/10/17 07:50 White Blood Count 14.3th/mm3 (3.8-10.1) Red Blood Count 4.24mil/mm3 (3.90-5.20) Hemoglobin 12.1g/dL (12.0-15.6) Hematocrit 36.6% (35.0-46.0) Mean Corpuscular Volume 86.3fL (81-100) Mean Corpuscular Hemoglobin 28.5pg (27.0-35.0) Mean Corpuscular Hemoglobin Concent 33.1% (32.0-37.0) Red Cell Distribution Width 16.0% (12.3-15.4) Platelet Count 276bil/L (150-400) Neutrophils (%) (Auto) 87.6% (40-74) Lymphocytes (%) (Auto) 7.3% (14-46) Monocytes (%) (Auto) 3.9% (4-12) Eosinophils (%) (Auto) 0% (0-5) Basophils (%) (Auto) 0.2% (0-3) Sodium Level 136mEq/L (134-144) Potassium Level 4.5mEq/L (3.5-5.2) Chloride Level 96mEq/L (97-108) Carbon Dioxide Level 24mmol/L (18-29) Blood Urea Nitrogen 36mg/dL (6-24) Creatinine 1.14mg/dL (0.57-1.00) Estimat Glomerular Filtration Rate 71mL/min (>59) Glucose Level 206mg/dL (60-99) Calcium Level 10.2mg/dL (8.5-10.1) Total Bilirubin 0.2mg/dL (0.0-1.2) Aspartate Amino Transf (AST/SGOT) 21U/L (0-50) Alanine Aminotransferase (ALT/SGPT) 14U/L (0-32) Alkaline Phosphatase 124U/L (25-150) Total Protein 7.6g/dL (6.4-8.4) Albumin 3.8g/dL (3.4-5.0) Discharge Medications Discharge Medications Benzonatate (Benzonatate) 200 Mg Capsule 200 MG PO TID Prescribed by: RONALDO HEALY MD Ipratropium/Albuterol Sulfate (Iprat-Albut 0.5-3(2.5) mg/3 mL Inhalant Soln) 3 Ml Ampul.neb 3 ML IH Q6 Prescribed by: RONALDO HEALY MD Prednisone (PredniSONE) 20 Mg Tablet 40 MG PO DAILY Prescribed by: LANDON DIEGO MD As needed Albuterol HFA (Proair HFA) 8.5 Gm Hfa.aer.ad 2 PUFFS IH Q4 PRN PRN For Shortness of Breath (Reported) Albuterol Neb Soln (Albuterol Neb Soln) 2.5 Mg/3 Ml Vial.neb 2.5 MG IH Q4 PRN PRN For Shortness of Breath (Reported) Esomeprazole Magnesium (Nexium) 40 Mg Capsule.dr 40 MG PO DAILY PRN PRN For Dyspepsia or Heartburn (Reported) Naproxen (Naprosyn) 500 Mg Tablet 500 MG PO BID PRN PRN For Pain Prescribed by: MATTI ALONSO, ERIK Followup Plan Disposition: Home Discharge Diet: Low fat, Low Sodium Discharge Activity: Limited until seen by PCP Patient Instructions You were hospitalized due to asthma/COPD exacerbation. You have been treated with IV steroids. Please continue prednisone 40 mg po daily for 3 more days. We have arranged home oxygen. Please follow-up with PCP for possible repeat pulmonary function test and optimization of COPD/asthma medication regimen. Follow-up Provider: Mila Mcconnell Follow-up with PCP in: 1 week Time spent 45 minutes counseling and coordinating discharge copies to: Mila Mcconnell Melaku MD May 10, 2017 17:51
== END 2017-05-10 15:30 | disposition home or self-care (01) | DRG 191 ==
LOC: SED 02:41 → OSC 05:01
PROVIDERS: ADMIT Hospitalist; ATTEND Internal Medicine
DX: J44.0 Chronic obstructive pulmonary disease with (acute) lower respiratory infection (principal); N17.9 Acute kidney failure, unspecified; J44.1 Chronic obstructive pulmonary disease with (acute) exacerbation; D86.89 Sarcoidosis of other sites; J98.8 Other specified respiratory disorders; J45.909 Unspecified asthma, uncomplicated; M79.7 Fibromyalgia; E78.5 Hyperlipidemia, unspecified; I10 Essential (primary) hypertension; Z79.51 Long term (current) use of inhaled steroids; Z86.73 Personal history of transient ischemic attack (TIA), and cerebral infarction without residual deficits; Z77.22 Contact with and (suspected) exposure to environmental tobacco smoke (acute) (chronic)